=== PATIENT | male | born 1985 | race Caucasian/White ===

== ENCOUNTER 2016-06-26 03:38 | Emergency (ER) ==
[2016-06-26] MEDS ORDERED: ZOFRAN 4 MG/2 ML IM STA (03:43)
[2016-06-26] MEDS ORDERED: DILAUDID 2 MG/ML SYRINGE IM STA (03:43)
[2016-06-26] MEDS ORDERED: ZOFRAN 4 MG/2 ML IVP STA (03:49)
[2016-06-26] MEDS ORDERED: DILAUDID 2 MG/ML SYRINGE IVP STA (03:49)
--- NOTE | 2016-06-26 03:52 | ED.PDOC ---
General Stated Complaint: patient is brought by friend, saying he injured his left fore arm 2 days ago, now is is swollen, painful. also c/o he did drink some bleach 2 days ago thinking its water. <JACOB WAKEFIELD - Last Filed: 06/26/16 06:33> Stated Complaint: discuss with dr wakefield- abscess left forearm entire forearm is swollneandtender admits street drug injection states took big blue pill- antibiotic yesterday unsure of name - 300 mg one a day(note clindamycin on internet)not precise on day of injection -note told RN he vomited blood and had drunk bleach 2 days ago; [facility] no antidote are indicated, patient denies gi history emesis blood from stomach this morning small amount at home and at ER per patient.,per rn [facility] defers to handsurger(Smita at [facility]) Time Seen by Physician: 06:49 Mode of Arrival: Walk-In Information Source: Patient Exam Limitations: Other (unreliable history) Nursing and Triage Documentation Reviewed and Agree: No <GRETA DORANTES JR - Last Filed: 06/26/16 19:22> ED Provider: Dr. GRETA DORANTES JR (JACOB WAKEFIELD) (GRETA DORANTES JR) Chief Complaint: Extremity Pain/Injury Musculoskeletal Complaint Exam - Upper Extremity Complaint/Exam Location of Pain: Reports: Left, Elbow, Forearm, Wrist Mechanism of Injury: Reports: Trauma Symptoms Are: Still present Timing: Constant Episodes Lasting: Days Initial Severity: Severe Current Severity: Severe Location: Reports: Discrete Character: Reports: Aching, Throbbing Aggravating: Reports: Movement, Lifting, Flexion, Extension Alleviating: Reports: None Non-Orthopedic Risk Factors: Reports: None DVT Risk Factors: Reports: None Upper Extremity Findings: Present: Swelling, Ecchymosis, Abnormal contour, Rotation, Erythema, Warmth, Blisters, Tenderness Differential Diagnoses: Closed Fracure, Osteomyelitis, Septic Arthritis <JACOB WAKEFIELD - Last Filed: 06/26/16 06:33> Review of Systems - Review Of Systems Constitutional: Reports: Malaise, Weakness Eyes: Reports: No symptoms Ears, Nose, Mouth, Throat: Reports: No symptoms Respiratory: Reports: No symptoms Cardiac: Reports: No symptoms GI: Reports: No symptoms : Reports: No symptoms Musculoskeletal: Reports: Joint pain, Joint swelling, Muscle pain Skin: Reports: No symptoms Neurological: Reports: No symptoms Endocrine: Reports: No symptoms Hematologic/Lymphatic: Reports: No symptoms All Other Systems: Reviewed and Negative <JACOB WAKEFIELD - Last Filed: 06/26/16 06:33> Past Medical History - Past Medical History Previously Healthy: No Endocrine: Reports: None Cardiovascular: Reports: None Respiratory: Reports: None Hematological: Reports: None Gastrointestinal: Reports: None Genitourinary: Reports: None Neuro/Psych: Reports: None Musculoskeletal: Reports: None Cancer: Reports: None - Surgical History General Surgical History: Reports: None - Family History Family History: Reports: None - Social History Smoking Status: Current every day smoker Smoking Cessation Counseling Time: > 3 min - 10 min Hx Substance Use: Yes Alcohol Screening: Occasionally <JACOB WAKEFIELD - Last Filed: 06/26/16 06:33> Physical Exam - Physical Exam Appearance: Ill-appearing, Thin Eyes: EDWINA, EOMI, Conjunctiva clear ENT: Ears normal, Nose normal, Oropharynx normal Respiratory: Airway patent, Breath sounds clear, Breath sounds equal, Respirations nonlabored Cardiovascular: RRR, Pulses normal, No rub, No murmur GI/: Soft, Nontender, No masses, Bowel sounds normal, No Organomegaly Musculoskeletal: Limited ROM, Limited strength, Edema (swelling at distal arm with some needle alexis) Skin: Warm Neurological: Sensation intact, Motor intact, Reflexes intact, Cranial nerves intact, Alert, Oriented Psychiatric: Affect appropriate, Mood appropriate <JACOB WAKEFIELD - Last Filed: 06/26/16 06:33> Interpretation - Radiology Interpretation Radiology Interpretation By: Radiologist Radiology Results: Positive (hematoma, cellulitis) Exam Interpreted: CT Scan <JACOB WAKEFIELD - Last Filed: 06/26/16 06:33> - Radiology Interpretation Radiology Results: Positive - EKG Interpretation Time of EKG #1: 07:20 Rate: Normal Rhythm: Sinus [place]: NL ST Segment: Other (RR' V1, V2 no acute changes) <GRETA DORANTES JR - Last Filed: 06/26/16 19:22> Re-Evaluation - Re-Evaluation Time of Re-Evaluation: 15:02 Status: Worse (now draining foul smelling brown liquid) <GRETA DORANTES JR - Last Filed: 06/26/16 19:22> Physician Notification - Case Discussed Time of Notification: 06:34 (Dr Dorantes) <JACOB WAKEFIELD - Last Filed: 06/26/16 06:33> - Case Discussed Physician Notified: 07:37 Dr Velazquez at [facility] Time of Notification: 06:46 (dr wakefield) <GRETA DORANTES JR - Last Filed: 06/26/16 19:22> Critical Care Note - Critical Care Note Total Time (mins): 0 <JACOB WAKEFIELD - Last Filed: 06/26/16 06:33> Course - Course Hematology/Chemistry: 06/26/16 03:56 06/26/16 03:56 <JACOB WAKEFIELD - Last Filed: 06/26/16 06:33> - Course Hematology/Chemistry: 06/26/16 10:20 06/26/16 10:20 <GRETA DORANTES JR - Last Filed: 06/26/16 19:22> - Course Orders, Labs, Meds: Lab Review 06/26/16 06/26/16 06/26/16 03:55 03:56 05:00 WBC 13.91 H RBC 4.10 L Hgb 12.3 L Hct 34.9 L MCV 85.1 MCH 30.0 MCHC 35.2 RDW Coeff of Yoly 11.9 Plt Count 164 Immature Gran % (Auto) 2.7 Neut % (Auto) 80.5 Lymph % (Auto) 6.7 L Loving % (Auto) 9.7 Eos % (Auto) 0.1 Baso % (Auto) 0.3 Immature Gran # (Auto) 0.4 Neut # 11.2 H Lymph # 0.9 Loving # 1.4 Eos # 0.0 Baso # 0.0 PT INR APTT Sodium 138 Potassium 3.0 L Chloride 103 Carbon Dioxide 22 Anion Gap 16.0 BUN 5 L Creatinine 0.77 Estimated GFR (MDRD) 119.00 BUN/Creatinine Ratio 6.49 Glucose 104 H Calcium 8.9 Total Bilirubin 0.81 AST 23 ALT 28 Alkaline Phosphatase 87 Total Protein 6.4 Albumin 3.2 L Globulin 3.2 Albumin/Globulin Ratio 1.00 Amylase 29 Lipase 24 Urine Color Yellow Urine Clarity Clear Urine pH 7.0 Ur Specific [place] 1.020 Urine Protein 2+ Urine Glucose (UA) Trace Urine Ketones 2+ Urine Blood 1+ Urine Nitrite Negative Urine Bilirubin 1+ Urine Urobilinogen >=8.0 Ur Leukocyte Esterase Negative Urine Microscopic RBC 2-5 Urine Microscopic WBC 0-2 Ur Squamous Epith Cells 0-2 Urine Bacteria Trace Urine Mucus 1+ Urine Opiates Screen Positive Ur Oxycodone Screen Negative Urine Methadone Screen Negative Ur Propoxyphene Screen Negative Ur Barbiturates Screen Negative U Tricyclic Antidepress Negative Ur Phencyclidine Scrn Negative Ur Amphetamine Screen Positive U Methamphetamines Scrn Positive U Benzodiazepines Scrn Negative Urine Cocaine Screen Negative U Cannabinoids Screen Positive 06/26/16 06/26/16 05:55 10:20 WBC 13.11 H RBC 3.76 L Hgb 11.2 L Hct 31.7 L MCV 84.3 MCH 29.8 MCHC 35.3 RDW Coeff of Yoly 12.0 Plt Count 143 Immature Gran % (Auto) Neut % (Auto) Lymph % (Auto) Loving % (Auto) Eos % (Auto) Baso % (Auto) Immature Gran # (Auto) Neut # Lymph # Loving # Eos # Baso # PT 11.4 H INR 1.11 APTT 27.3 Sodium 135 L Potassium 3.4 L Chloride 102 Carbon Dioxide 23 Anion Gap 13.4 BUN 4 L Creatinine 0.66 Estimated GFR (MDRD) 143.00 BUN/Creatinine Ratio 6.06 Glucose 102 H Calcium 8.2 Total Bilirubin AST ALT Alkaline Phosphatase Total Protein Albumin Globulin Albumin/Globulin Ratio Amylase Lipase Urine Color Urine Clarity Urine pH Ur Specific [place] Urine Protein Urine Glucose (UA) Urine Ketones Urine Blood Urine Nitrite Urine Bilirubin Urine Urobilinogen Ur Leukocyte Esterase Urine Microscopic RBC Urine Microscopic WBC Ur Squamous Epith Cells Urine Bacteria Urine Mucus Urine Opiates Screen Ur Oxycodone Screen Urine Methadone Screen Ur Propoxyphene Screen Ur Barbiturates Screen U Tricyclic Antidepress Ur Phencyclidine Scrn Ur Amphetamine Screen U Methamphetamines Scrn U Benzodiazepines Scrn Urine Cocaine Screen U Cannabinoids Screen Orders Category Date Time Status EKG-(ED ONLY) Stat CARDIO 06/26/16 07:11 Completed ED IV/MEDIPORT/POWERPORT .ONCE EMERGENCY 06/26/16 03:48 Active AMYLASE Stat LAB 06/26/16 03:55 Completed BLOOD CULTURE Stat LAB 06/26/16 04:10 Received BMP [BASIC METABOLIC PANEL] Stat LAB 06/26/16 10:20 Completed CBC HEMOGRAM ONLY Stat LAB 06/26/16 10:20 Completed CBC W/ AUTO DIFF Stat LAB 06/26/16 03:56 Completed COMPREHENSIVE METABOLIC PANEL Stat LAB 06/26/16 03:56 Completed DRUG SCREEN, URINE, RAPID Stat LAB 06/26/16 05:00 Completed GRAM STAIN Stat LAB 06/26/16 15:10 Completed LIPASE Stat LAB 06/26/16 03:55 Completed PT WITH INR Stat LAB 06/26/16 05:55 Completed PTT [PARTIAL THROMBOPLASTIN TIME] Stat LAB 06/26/16 05:55 Completed URINALYSIS C & S IF INDICATED Stat LAB 06/26/16 05:00 Completed WOUND CULTURE Stat LAB 06/26/16 15:10 Received 0.9 % Sodium Chloride [Saline Flush] MEDS 06/26/16 03:48 Discontinued 1 syr IVF PRN PRN Acetaminophen [Tylenol] MEDS 06/26/16 06:20 Discontinued 650 mg PO ONCE STA Acetaminophen [Tylenol] MEDS 06/26/16 14:31 Discontinued 650 mg PO ONCE STA Ceftriaxone Sodium [Rocephin] MEDS 06/26/16 04:00 Discontinued 1 gm IV ONCE STA Hydromorphone HCl/Pf [Dilaudid 2 mg/ml Syringe] MEDS 06/26/16 03:43 Discontinued 2 mg IM ONCE STA Hydromorphone HCl/Pf [Dilaudid 2 mg/ml Syringe] MEDS 06/26/16 03:49 Discontinued 2 mg IVP ONCE STA Morphine Sulfate [Morphine 2 mg/ml Syringe] MEDS 06/26/16 11:46 Discontinued 2 mg IVP ONCE STA Morphine Sulfate [Morphine 2 mg/ml Syringe] MEDS 06/26/16 14:14 Discontinued 2 mg IVP ONCE STA Morphine Sulfate [Morphine 4 mg/ml Syringe] MEDS 06/26/16 07:07 Discontinued 4 mg IVP ONCE STA Ondansetron HCl/Pf [Zofran 4 mg/2 ml] MEDS 06/26/16 03:43 Discontinued 4 mg IM ONCE STA Ondansetron HCl/Pf [Zofran 4 mg/2 ml] MEDS 06/26/16 03:49 Discontinued 4 mg IVP ONCE STA Pantoprazole Sodium [Protonix IV] MEDS 06/26/16 03:59 Discontinued 40 mg IVP ONCE STA Potassium Chloride [K-Dur] MEDS 06/26/16 06:20 Discontinued 40 meq PO ONCE STA Vancomycin HCl [Vancomycin] 1 gm MEDS 06/26/16 03:55 Discontinued 0.9 % Sodium Chloride [Sodium Chloride] 250 ml IV ONCE Vancomycin HCl [Vancomycin] 750 mg MEDS 06/26/16 11:46 Discontinued 0.9 % Sodium Chloride [Sodium Chloride] [address] ABDOMEN/PELVIS WO CONTRAST Stat RADS 06/26/16 03:[address] FOREARM LEFT WO CONTRAST Stat RADS 06/26/16 03:48 Completed FOREARM, LEFT 2 VIEWS Stat RADS 06/26/16 03:43 Completed HAND, LEFT 3 VIEWS Stat RADS 06/26/16 03:43 Completed Medications Discontinued Medications Generic Name Dose Route Start Last Admin Trade Name Freq PRN Reason Stop Dose Admin Acetaminophen 650 mg 06/26/16 06:20 06/26/16 06:26 Tylenol PO 06/26/16 06:21 650 mg ONCE STA Administration Acetaminophen 650 mg 06/26/16 14:31 06/26/16 14:37 Tylenol PO 06/26/16 14:32 650 mg ONCE STA Administration Ceftriaxone Sodium 1 gm 06/26/16 04:00 06/26/16 05:57 Rocephin IV 06/26/16 04:01 1 gm ONCE STA Administration Hydromorphone HCl 2 mg 06/26/16 03:43 06/26/16 04:55 Dilaudid 2 Mg/Ml Syringe IM 06/26/16 03:44 Not Given ONCE STA Hydromorphone HCl 2 mg 06/26/16 03:49 06/26/16 04:51 Dilaudid 2 Mg/Ml Syringe IVP 06/26/16 03:50 2 mg ONCE STA Administration Vancomycin HCl 1 gm/ Sodium 250 mls @ 250 mls/hr 06/26/16 03:55 06/26/16 04: 57 Chloride IV 06/26/16 04:54 250 mls/hr ONCE STA Administration Vancomycin HCl 750 mg/ Sodium 100 mls @ 100 mls/hr 06/26/16 11:46 06/26/16 12 :22 Chloride IV 06/26/16 12:45 100 mls/hr ONCE STA Administration Morphine Sulfate 4 mg 06/26/16 07:07 06/26/16 07:14 Morphine 4 Mg/Ml Syringe IVP 06/26/16 07:08 4 mg ONCE STA Administration Morphine Sulfate 2 mg 06/26/16 11:46 06/26/16 12:22 Morphine 2 Mg/Ml Syringe IVP 06/26/16 11:47 2 mg ONCE STA Administration Morphine Sulfate 2 mg 06/26/16 14:14 06/26/16 14:26 Morphine 2 Mg/Ml Syringe IVP 06/26/16 14:15 2 mg ONCE STA Administration Ondansetron HCl 4 mg 06/26/16 03:43 06/26/16 04:54 Zofran 4 Mg/2 Ml IM 06/26/16 03:44 Not Given ONCE STA Ondansetron HCl 4 mg 06/26/16 03:49 06/26/16 04:52 Zofran 4 Mg/2 Ml IVP 06/26/16 03:50 4 mg ONCE STA Administration Pantoprazole Sodium 40 mg 06/26/16 03:59 06/26/16 04:52 Protonix Iv IVP 06/26/16 04:00 40 mg ONCE STA Administration Potassium Chloride 40 meq 06/26/16 06:20 06/26/16 06:26 K-Dur PO 06/26/16 06:21 40 meq ONCE STA Administration Sodium Chloride 1 syr 06/26/16 03:48 06/26/16 07:16 Saline Flush IVF 1 syr PRN PRN Administration To flush IV (JACOB WAKEFIELD) (GRETA DORANTES JR) Vital Signs: Temp Pulse Resp BP Pulse Ox 06/26/16 14:33 103 F H 103 H 18 134/66 98 06/26/16 07:35 100.2 F H 06/26/16 03:42 102.4 F H 114 H 22 146/74 H 97 (GRETA DORANTES JR) Departure - Departure Pt referred to PMD for follow-up: Yes Disposition Discussed With: Patient <JACOB WAKEFIELD - Last Filed: 06/26/16 06:33> - Departure Time of Disposition: 16:10 <GRETA DORANTES JR - Last Filed: 06/26/16 19:22> - Departure Disposition: TSF OTHER Discharge Problem: Left arm cellulitis Instructions: Cellulitis (ED) Condition: Stable Additional Instructions: patient has good radial pulse, but had pain with flexion and extension of the wrist. Allergies/Adverse Reactions: Allergies No Known Allergies Allergy (Verified 06/26/16 03:54) Home Medications: Ambulatory Orders 1 [No Reported Medications] 06/10/14
[2016-06-26 03:54] VITALS: BMI 20.2
[2016-06-26] MEDS ORDERED: VANCOMYCIN 1 GM in SODIUM CHLORIDE 250 ML IV STA (03:55)
[2016-06-26 03:57] LABS: BASOPHILS % (AUTO) 0.3 % (0.0-3.0); EOSINOPHILS % (AUTO) 0.1 % (0.0-7.0); HEMATOCRIT 34.9 % (42.0-52.0); HEMOGLOBIN 12.3 g/dl (14.0-18.0); IMMATURE GRANULOCYTE % (AUTO) 2.7 % (0.0-5.0); LYMPHOCYTES # (AUTO) 0.9 K/uL (0.60-3.4); LYMPHOCYTES % (AUTO) 6.7 (10.0-50.0); MEAN CORPUSCULAR HGB CONC 35.2 (31.8-35.4); MEAN CORPUSCULAR VOLUME 85.1 fl (80.0-94.0); MONOCYTES # (AUTO) 1.4 K/uL (0.4-2.0); MONOCYTES % (AUTO) 9.7 (0-10); NEUTROPHILS # (AUTO) 11.2 K/ul (2.0-6.9); NEUTROPHILS % (AUTO) 80.5; PLATELET COUNT 164 10^3/uL (140-440); WHITE BLOOD COUNT 13.91 K/ul (4.2-10.2)
[2016-06-26] MEDS ORDERED: PROTONIX IV IVP STA (03:59)
[2016-06-26] MEDS ORDERED: ROCEPHIN IV STA (04:00)
[2016-06-26] MEDS ORDERED: LIDOCAINE 1 % AMP 5 ML (SUTURES) IM STA (04:00)
[2016-06-26 04:17] LABS: ALBUMIN 3.2 g/dL (3.4-5.0); BILIRUBIN,TOTAL 0.81 mg/dL (0.00-1.20); BUN/CREATININE RATIO 6.49; CALCIUM 8.9 mg/dL (8.2-10.2); CREATININE 0.77 mg/dL (0.60-1.10); TOTAL PROTEIN 6.4 g/dL (6.4-8.2)
[2016-06-26 04:18] LABS: AMYLASE 29 U/L (25-115); LIPASE 24 U/L (8-78)
--- NOTE | 2016-06-26 04:55 | CT ---
EXAM: CT of the abdomen and pelvis without contrast. HISTORY: Epigastric pain. Injury. PROCEDURE: Contiguous axial CT images of the abdomen and pelvis without contrast with coronal and s agittal reformats. FINDINGS: The exam is limited without IV contrast. There is motion artifact which limits the exam. There is a fluid density cyst in the liver. The gallbladder, pancreas, spleen, adrenal glands and k idneys are normal in appearance. The abdominal aorta is normal in appearance. The visualized loops of bowel and appendix are normal in appearance. No free fluid or free air in the abdomen or pelvis . The bladder is minimally filled with no abnormality identified. The seminal vesicles and prostat e gland are unremarkable. The bony structures are intact. There is a small umbilical hernia contai levi only fat. Impression: No acute findings in the abdomen or pelvis. Simple hepatic cyst. Umbilical hernia as described.
--- NOTE | 2016-06-26 04:59 | CT ---
EXAM: CT of the left forearm without contrast. HISTORY: Injury with left forearm pain and swelling. PROCEDURE: Contiguous axial CT images of the left forearm without contrast with coronal and sagitta l reformats. FINDINGS: The bony structures are intact with no evidence of fracture. The joint spaces are mainta ined. There is diffuse soft tissue swelling in the forearm. There is a 1.8 x 2.6 cm hematoma in th e distal left forearm. Impression: No evidence of fracture. 1.8 x 2.6 cm hematoma in the distal left forearm. Diffuse soft tissue swelling in the forearm.
[2016-06-26 05:13] LABS: BILIRUBIN,URINE 1+ (NEGATIVE); KETONES,URINE 2+ (NEGATIVE); LEUKOCYTE ESTERASE ,URINE Negative (NEGATIVE); NITRITE,URINE Negative (NEGATIVE); PROTEIN,URINE 2+ (NEGATIVE); URINE, BLOOD 1+ (NEGATIVE)
[2016-06-26 05:19] LABS: ADD URINE MICROSCOPIC YES
[2016-06-26 05:20] LABS: BACTERIA,URINE TRACE (NOT PRESENT)
--- NOTE | 2016-06-26 05:22 | DI ---
EXAM: Three views left forearm. HISTORY: Injury and pain. FINDINGS: The bony structures are intact with no evidence of fracture. The joint spaces are mainta ined. There is soft tissue swelling in the forearm. Impression: No evidence of fracture. Soft tissue swelling in the forearm.
--- NOTE | 2016-06-26 05:25 | DI ---
EXAM: Three views of the left hand. HISTORY: Injury and pain. FINDINGS: The lateral view is obliqued which limits the exam. The visualized bony structures are i ntact. The visualized joint spaces are maintained. There is soft tissue swelling in the hand. Impression: No evidence of fracture. Soft tissue swelling in the hand.
[2016-06-26 05:26] LABS: COCAIN SCREEN,URINE NEGATIVE (NEGATIVE)
[2016-06-26] MEDS ORDERED: SODIUM CHLORIDE 100 ML IV ONE (05:57)
[2016-06-26] MEDS ORDERED: TYLENOL PO STA ×2 (06:20→14:31)
[2016-06-26] MEDS ORDERED: K-DUR PO STA (06:20)
[2016-06-26] MEDS ORDERED: MORPHINE 4 MG/ML SYRINGE IVP STA (07:07)
[2016-06-26 07:39] LABS: PARTIAL THROMBOPLASTIN TIME 27.3 SEC (23.9-40.0); PROTHROMBIN TIME 11.4 SEC (9.3-11.0)
[2016-06-26 10:28] LABS: HEMATOCRIT 31.7 % (42.0-52.0); HEMOGLOBIN 11.2 g/dl (14.0-18.0); MEAN CORPUSCULAR HEMOGLOBIN 29.8 pg (27.0-31.0); MEAN CORPUSCULAR HGB CONC 35.3 (31.8-35.4); MEAN CORPUSCULAR VOLUME 84.3 fl (80.0-94.0); RED BLOOD COUNT 3.76 10^6/ul (4.70-6.10); WHITE BLOOD COUNT 13.11 K/ul (4.2-10.2)
[2016-06-26 10:45] LABS: ANION GAP 13.4; BUN/CREATININE RATIO 6.06; CALCIUM 8.2 mg/dL (8.2-10.2); CREATININE 0.66 mg/dL (0.60-1.10); POTASSIUM 3.4 mmol/L (3.5-5.1)
[2016-06-26] MEDS ORDERED: MORPHINE 2 MG/ML SYRINGE IVP STA ×2 (11:46→14:14)
[2016-06-26] MEDS ORDERED: VANCOMYCIN 750 MG in SODIUM CHLORIDE 100 ML IV STA (11:46)
[2016-06-26 14:33] VITALS: BP 134/66; TEMP 103
== END 2016-06-26 16:11 | disposition short-term general hospital (02) ==
LOC: ED 03:38
DX: L03.114 Cellulitis of left upper limb (principal); R53.1 Weakness; F19.90 Other psychoactive substance use, unspecified, uncomplicated; T54.91XA Toxic effect of unspecified corrosive substance, accidental (unintentional), initial encounter; K92.0 Hematemesis; W46.0XXA Contact with hypodermic needle, initial encounter; F17.210 Nicotine dependence, cigarettes, uncomplicated
CPT/HCPCS: 36415; 80048; 80053; 80306; 81001; 82150; 83690; 85025; 85027; 85610; 85730; 87040; 87070; 87205; 93005; 93010; 96365; 96367; 96375; 96376; 99285

== ENCOUNTER 2016-06-26 16:14 | Outpatient (CLI) ==
[2016-06-26 03:54] VITALS: BMI 20.2
== END 2016-06-26 16:15 ==
LOC: AMBL 16:14
PROVIDERS: ATTEND Emergency Medicine
DX: L02.414 Cutaneous abscess of left upper limb (principal); R60.0 Localized edema; T54.91XA Toxic effect of unspecified corrosive substance, accidental (unintentional), initial encounter; W46.0XXA Contact with hypodermic needle, initial encounter